=== PATIENT | female | born 1985 | race Caucasian/White ===

== ENCOUNTER 2016-07-15 08:04 | Emergency (ER) | payer BC ==
--- NOTE | 2016-07-15 08:29 | UC ---
Throat Pain/Nasal Memo HPI - HPI Summary HPI Summary: R-sided st with chills, fatigue starting 2 days ago. Has 6-yr-old son at home. - History of Current Complaint Chief Complaint: UCRespiratory Stated Complaint: THROAT PAIN Time Seen by Provider: 07/15/16 08:17 Hx Obtained From: Patient Hx Last Menstrual Period: 06/20/16 ?: No Onset/Duration: Gradual Onset, Lasting Days Severity: Moderate Associated Signs & Symptoms: Negative: Sinus Discomfort, Nasal Discharge, Fever , Vomiting, Rash - Allergies/Home Medications Allergies/Adverse Reactions: Allergies Allergy/AdvReac Type Severity Reaction Status Date / Time Ciprofloxacin [From Cipro] Allergy Hives Verified 04/19/12 15:56 Penicillins Allergy Hives Verified 04/19/12 15:56 Home Medications: Home Medications Ibuprofen [Ibuprofen 200 MG] 07/15/16 [History] PMH/Surg Hx/FS Hx/Imm Hx Endocrine History Of: Denies: Diabetes, Thyroid Disease Cardiovascular History Of: Reports: Cardiac Disorders - palpitations Denies: Hypertension, Pacemaker/ICD Respiratory History Of: Denies: COPD, Asthma GI/ History Of: Denies: Gastroesophageal Reflux, Ulcer, Renal Disease Neurological History Of: Denies: CVA, Dementia, Seizures Other History Of: Negative For: Anticoagulant Therapy - Surgical History Surgical History: Yes Surgery Procedure, Year, and Place: vericose veins - Family History Known Family History: Positive: Hypertension - Social History Lives: With Family Alcohol Use: None Substance Use Type: None Smoking Status (MU): Never Smoked Tobacco Review of Systems Constitutional: Chills Skin: Negative Eyes: Negative ENT: Sore Throat Respiratory: Negative Cardiovascular: Negative Gastrointestinal: Negative Genitourinary: Negative Motor: Negative Neurovascular: Negative Musculoskeletal: Negative Neurological: Negative Psychological: Negative All Other Systems Reviewed And Are Negative: Yes Physical Exam Triage Information Reviewed: Yes Appearance: Well-Appearing, Well-Nourished Vital Signs: Initial Vital Signs Temp 97.8 F 07/15/16 08:13 Pulse 93 07/15/16 08:13 Resp 16 07/15/16 08:13 BP 122/68 07/15/16 08:13 Pulse Ox 98 07/15/16 08:13 Vital Signs Reviewed: Yes Eye Exam: Normal Eyes: Positive: Conjunctiva Clear ENT: Positive: Pharyngeal erythema, TMs normal, Tonsillar swelling, Tonsillar exudate Dental Exam: Normal Neck: Positive: Supple, Tenderness @ - R tonsillar node, Enlarged Nodes @ - tonsillar Respiratory Exam: Normal Respiratory: Positive: Chest non-tender, Lungs clear, Normal breath sounds, No respiratory distress, No accessory muscle use Cardiovascular Exam: Normal Cardiovascular: Positive: RRR, No Murmur Musculoskeletal Exam: Normal Neurological Exam: Normal Neurological: Positive: Alert Psychological Exam: Normal Skin Exam: Normal Throat Pain/Nasal Course/Dx - Differential Dx/Diagnosis Provider Diagnoses: strep tonsillitis. elevated blood pressure due to pain Discharge - Discharge Plan Condition: Stable Disposition: HOME Prescriptions: Cefdinir [Cefdinir 300 MG CAP] 300 mg PO BID #20 cap Patient Education Materials: Strep Throat (ED) Additional Instructions: If you start getting a rash or swelling in the face, please stop the medicine immediately and return here. As long as you gradually feel better and have no new or worsening symptoms, simply finish the medication and no follow-up evaluation is necessary.
[2016-07-15 08:33] VITALS: BP 122/68
== END 2016-07-15 08:46 | disposition home or self-care (01) ==
LOC: UCEAST 08:04
DX: J03.00 Acute streptococcal tonsillitis, unspecified (principal); R03.0 Elevated blood-pressure reading, without diagnosis of hypertension; R52 Pain, unspecified; R00.2 Palpitations; Z88.3 Allergy status to other anti-infective agents; Z88.0 Allergy status to penicillin
CPT/HCPCS: 87651; 99212; G0463

== ENCOUNTER 2017-07-07 22:01 | Emergency (ER) | payer SELFPAY ==
[2017-07-07 23:04] LABS: Urine Appearance Clear; Urine Blood 1+ (Negative); Urine Color Colorless; Urine Ketones Negative (Negative); Urine Protein Negative (Negative); Urine Specific Gravity 1.002 (1.010-1.030); Urine Urobilinogen Negative (Negative)
[2017-07-07] MEDS ORDERED: Ibuprofen TAB* 600 MG PO ONE (23:12)
--- NOTE | 2017-07-07 23:17 | ED ---
GI/ HPI - HPI Summary HPI Summary: Complains of pain with urination, inc urinary frequency, chills x 1 hour. Hx of recurrent UTI, states this feels like UTI. Denies fever, N/V, vaginal bleeding, vaginal discharge, vaginal pain, abdominal pain, change in BM. Medical history is none. Abdominal/pelvic surgical history is none. LMP 06/25 - History of Current Complaint Chief Complaint: EDUrogenitalProblems Time Seen by Provider: 07/07/17 22:55 Stated Complaint: BURNING WHEN URINATING Hx Obtained From: Patient Hx Last Menstrual Period: 06/20/16 Onset/Duration: Started Minutes Ago Timing: Intermittent Severity: Moderate Current Severity: Moderate Pain Intensity: 8 Location of Pain: Groin Pain Characteristics: Burning Associated Signs and Symptoms: Positive: Dysuria, Chills, UTI Symptoms Alleviating Factor(s): OTC Analgesics - Allergy/Home Medications Allergies/Adverse Reactions: Allergies Allergy/AdvReac Type Severity Reaction Status Date / Time ciprofloxacin [From Cipro] Allergy Hives Verified 07/07/17 22:16 Penicillins Allergy Hives Verified 07/07/17 22:16 PMH/Surg Hx/FS Hx/Imm Hx Endocrine/Hematology History: Denies: Hx Anticoagulant Therapy, Hx Diabetes, Hx Thyroid Disease Cardiovascular History: Denies: Hx Hypertension, Hx Pacemaker/ICD Respiratory History: Denies: Hx Asthma, Hx Chronic Obstructive Pulmonary Disease (COPD) GI History: Denies: Hx Ulcer History: Denies: Hx Renal Disease Neurological History: Denies: Hx Dementia, Hx Seizures Psychiatric History: Denies: Hx Substance Abuse - Surgical History Surgery Procedure, Year, and Place: vericose veins Infectious Disease History: No Infectious Disease History: Denies: Hx Clostridium Difficile, Hx Hepatitis, Hx Human Immunodeficiency Virus (HIV), Hx of Known/Suspected MRSA, Hx Shingles, Hx Tuberculosis, Hx Known/ Suspected VRE, Hx Known/Suspected VRSA, History Other Infectious Disease, Traveled Outside the [place] in Last 30 Days - Family History Known Family History: Positive: Hypertension - Social History Alcohol Use: None Substance Use Type: Reports: None Smoking Status (MU): Never Smoked Tobacco Review of Systems Constitutional: Negative Eyes: Negative ENT: Negative Cardiovascular: Negative Respiratory: Negative Gastrointestinal: Negative Positive: burning, frequency Musculoskeletal: Negative Skin: Negative Neurological: Negative Psychological: Normal All Other Systems Reviewed And Are Negative: Yes Physical Exam - Summary Physical Exam Summary: All quadrants of abdomen soft nontender Triage Information Reviewed: Yes Vital Signs On Initial Exam: Initial Vitals Temp Pulse Resp BP Pulse Ox 97.1 F 81 16 123/74 100 07/07/17 22:13 07/07/17 22:13 07/07/17 22:13 07/07/17 22:13 07/07/17 22:13 Vital Signs Reviewed: Yes Appearance: Positive: Well-Appearing Skin: Positive: Warm Head/Face: Positive: Normal Head/Face Inspection Eyes: Positive: Normal Neck: Positive: Supple Respiratory/Lung Sounds: Positive: Clear to Auscultation Cardiovascular: Positive: Normal Abdomen Description: Positive: Nontender Musculoskeletal: Positive: Normal Neurological: Positive: Normal Psychiatric: Positive: Normal AVPU Assessment: Alert - [place] Coma Scale Best Eye Response: 4 - Spontaneous Best Motor Response: 6 - Obeys Commands Best Verbal Response: 5 - Oriented Coma Scale Total: 15 Diagnostics - Vital Signs Vital Signs Temp Pulse Resp BP Pulse Ox 07/07/17 22:13 97.1 F 81 16 123/74 100 - Laboratory Lab Results: Lab Results 07/07/17 Range/Units 22:18 Urine Color Colorless Urine Appearance Clear Urine pH 6.0 (5-9) Ur Specific [place] 1.002 L (1.010-1.030) Urine Protein Negative (Negative) Urine Ketones Negative (Negative) Urine Blood 1+ A (Negative) Urine Nitrate Negative (Negative) Urine Bilirubin Negative (Negative) Urine Urobilinogen Negative (Negative) Ur Leukocyte Esterase Trace A (Negative) Urine WBC (Auto) 1+(6-10/hpf) A (Absent) Urine RBC (Auto) Absent (Absent) Ur Squamous Epith Cells Present A (Absent) Urine Bacteria Absent (Absent) Urine Glucose Negative (Negative) Lab Statement: Any lab studies that have been ordered have been reviewed, and results considered in the medical decision making process. GIGU Course/Dx - Course Course Of Treatment: Patient opted to defer pelvic exam and blood work. History of recurrent UTIs, states this feels just like usual urinary tract infection. Physical exam unremarkable. Vital signs within normal limits. She has only had symptoms for 2 hours. Patient preferred trial of antibiotics for symptoms, despite negative UA. - Diagnoses Provider Diagnoses: Urinary tract infection symptoms Discharge - Sign-Out/Discharge Documenting (check all that apply): Discharge/Admit/Transfer - Discharge Plan Condition: Stable Disposition: HOME Prescriptions: Sulfamethox/Trimethoprim DS* [Bactrim DS 800/160 TAB*] 1 tab PO BID #20 tab Patient Education Materials: Urinary Tract Infection in Women (ED) Referrals: Abbey Abdi MD [Primary Care Provider] - Additional Instructions: Follow-up with primary care. Return to the ED for any new or worsening symptoms - Billing Disposition and Condition Condition: STABLE Disposition: HOME
[2017-07-08] MEDS ORDERED: Sulfamethox/Trimethoprim DS 800/160* TAB PO ONE (00:27)
[2017-07-08 00:28] VITALS: BP 125/65
[2017-07-08] MEDS ORDERED: Sulfamethox/Trimethoprim DS 800/160* TAB ONE (00:29)
== END 2017-07-08 00:35 | disposition home or self-care (01) ==
LOC: ED 22:01
DX: N39.0 Urinary tract infection, site not specified (principal); R30.0 Dysuria; R68.83 Chills (without fever)
CPT/HCPCS: 81003; 81015; 87077; 87086; 87186; 99282; A9270-GY